=== PATIENT | female | born 1955 | race African-American/Black ===

== ENCOUNTER 2016-10-13 17:44 | Emergency (ER) | payer MEDICARE, MEDICAID ==
[~2016-10-13] VITALS: Ht 165.1 cm; Wt 99.8 kg
[~2016-10-13 17:44] MED LIST: ASPI-306 PO; ATOR40TA52 PO; GLIM4TAB42 PO; INSUINJ49 SC; LISI2.5T47 PO; SERT-274 PO; SITA100T7 PO
[2016-10-13 18:53] LABS: Basophils # (auto) 0 uL; Basophils % (auto) 0.4 % (0.0-2.0); Eosinophils # (auto) 0.3 uL; Eosinophils % (auto) 3.7 % (0.0-7.0); Hematocrit 32.2 % (36.0-46.0); Hemoglobin 10.7 g/dL (12.2-16.2); Lymphocytes % (auto) 22.6 % (10.0-50.0); Mean Corpuscular Hgb Conc. 33.2 g/dL (32.0-36.0); Mean Corpuscular Volume 84.3 fL (80.0-100.0); Mean Platelet Volume 7.4 fL (7.4-10.4); Monocytes # (auto) 0.5 uL; Monocytes % (auto) 6.1 % (0.0-12.0); Neutrophils % (auto) 67.2 % (37.0-80.0); Platelet Count (auto) 335 10^3/uL (140-450); Red Cell Distribution Width 14.8 % (11.6-16.0); White Blood Cell 8.9 10^3/uL (4.4-10.8)
[2016-10-13 19:19] LABS: Albumin 3.5 g/dL (3.4-5.0); Alkaline Phosphatase 138 U/L (45-117); Anion Gap 6 (5-15); Aspartate Aminotransferase 16 U/L (15-37); BUN/Creatinine Ratio 13.3; Bilirubin, Total 0.3 mg/dL (0.2-1.0); Blood Urea Nitrogen 24 mg/dL (7-18); Calcium 8.7 mg/dL (8.5-10.1); Carbon Dioxide 24 mmol/L (21-32); Chloride 110 mmol/L (98-107); GFR African American 37 mL/min; GFR Non-African American 30 mL/min; Glucose 162 mg/dL (74-106); Magnesium 2.3 mg/dL (1.6-2.6); Potassium 4.7 mmol/L (3.5-5.1); Sodium 140 mmol/L (136-145); Total Protein 7.8 g/dL (6.4-8.2)
[2016-10-14 03:35] VITALS: BP 119/62
== END 2016-10-14 03:35 | disposition home or self-care (01) ==
LOC: ER 17:47
DX: R55 Syncope and collapse (principal); E11.9 Type 2 diabetes mellitus without complications; R51 Headache; R07.9 Chest pain, unspecified; E86.0 Dehydration; Z88.1 Allergy status to other antibiotic agents; Z88.8 Allergy status to other drugs, medicaments and biological substances; Z79.899 Other long term (current) drug therapy; Z79.4 Long term (current) use of insulin
CPT/HCPCS: 36415; 70450; 71010; 80053; 82962; 83735; 84484; 85025; 93005; 99285; J7030

== ENCOUNTER 2016-12-10 22:42 | Emergency (ER) | payer MEDICARE, OTHER ==
[~2016-12-10] VITALS: Ht 165.1 cm; Wt 99.8 kg
[2016-12-10 23:00] VITALS: BP 127/53
[2016-12-11] MEDS ORDERED: LEVOFLOXACIN 500MG 100 ML IV ONE (02:00)
[2016-12-11] MEDS ORDERED: LEVOFLOXACIN 500 MG TAB PO ONE (02:15)
== END 2016-12-11 02:22 | disposition home or self-care (01) ==
LOC: ER 22:42
DX: J18.9 Pneumonia, unspecified organism (principal); E11.9 Type 2 diabetes mellitus without complications
CPT/HCPCS: 71010

== ENCOUNTER 2020-08-26 20:34 | Inpatient (IN) | payer MEDICARE, OTHER ==
[~2020-08-26] VITALS: Ht 162.6 cm; Wt 105.0 kg
[2020-08-26 22:24] LABS: Basophils # (auto) 0 10 ^3/uL (0-0.2); Basophils % (auto) 0.2 % (0.0-2.0); Eosinophils # (auto) 0 10 ^3/uL (0-0.8); Hematocrit 31.9 % (36.0-46.0); Hemoglobin 10.2 g/dL (12.2-16.2); Lymphocytes # (auto) 0.8 10 ^3/uL (0.4-5.4); Lymphocytes % (auto) 7.1 % (10.0-50.0); Mean Corpuscular Hemoglobin 27.9 pg (28.0-32.0); Mean Corpuscular Volume 87.2 fL (80.0-100.0); Monocytes # (auto) 0.3 10 ^3/uL (0-1.3); Monocytes % (auto) 2.8 % (0.0-12.0); Neutrophils # (auto) 10.7 10 ^3/uL (1.6-8.6); Neutrophils % (auto) 89.9 % (37.0-80.0); Platelet Count (auto) 351 10^3/uL (140-450); Red Blood Cells 3.67 10^6/uL (4.0-5.20); Red Cell Distribution Width 14.9 % (11.8-14.3); White Blood Cell 11.9 10^3/uL (4.4-10.8)
[2020-08-26 22:40] LABS: Albumin 3.3 g/dL (3.4-5.0); Calcium 8.6 mg/dL (8.5-10.1); Potassium 4.5 mmol/L (3.5-5.1)
[2020-08-26 22:45] LABS: BUN/Creatinine Ratio 12.6; Bilirubin, Total 0.4 mg/dL (0.2-1.0); Total Protein 7.4 g/dL (6.4-8.2)
[2020-08-26 22:52] LABS: INR 1.13 (0.9-1.15); Partial Thromboplastin Time 22.4 sec (23.0-31.2)
[2020-08-26] MEDS ORDERED: SODIUM CHLORIDE 0.9% 1,000 ML IV ONE (23:00)
[2020-08-26] MEDS ORDERED: InsuLIN REG 1unit/0.01ml Soln (100units/ml) IV ONE (23:00)
[2020-08-27] MEDS ORDERED: ENOXAPARIN SOD 100 MG/1 ML SYRINGE SC ONE (00:15)
[2020-08-27] MEDS ORDERED: InsuLIN REG 1unit/0.01ml Soln (100units/ml) IV ONE (02:00)
[2020-08-27] MEDS ORDERED: ONDANSETRON HCL 4 MG/2 ML VIAL IV PRN (07:00)
[2020-08-27] MEDS ORDERED: DEXTROSE (50%) 50ML SYRG IV PRN (07:00)
[2020-08-27] MEDS ORDERED: ACETAMINOPHEN 325 MG TAB PO PRN (07:00)
[2020-08-27] MEDS ORDERED: MORPHINE SULF INJ 2 MG/ML SYRINGE 1ML IV PRN (07:00)
[2020-08-27] MEDS ORDERED: DOCUSATE SOD 100 MG CAP PO PRN (07:00)
[2020-08-27] MEDS ORDERED: MORPHINE SULFATE 4 MG/ML SYR/VIAL IV PRN (07:00)
[2020-08-27] MEDS ORDERED: NITROGLYCERIN 0.4 MG SL TAB SL PRN (07:00)
[2020-08-27] MEDS ORDERED: hydrALAZINE HCL 20 MG/ML VL IV PRN (07:15)
[2020-08-27] MEDS: INSULIN LANTUS (GLARGINE) 1 /0.01ml (100units/ml) SC SCH ×2 (07:37→21:37)
[2020-08-27] MEDS: HYDROcodone-ACET 5/325MG TAB PO PRN ×2 (08:30→19:47)
[2020-08-27 08:58] LABS: Basophils # (auto) 0 10 ^3/uL (0-0.2); Basophils % (auto) 0.4 % (0.0-2.0); Eosinophils # (auto) 0 10 ^3/uL (0-0.8); Hematocrit 27.6 % (36.0-46.0); Lymphocytes # (auto) 1.7 10 ^3/uL (0.4-5.4); Lymphocytes % (auto) 17.4 % (10.0-50.0); Mean Corpuscular Hemoglobin 28.1 pg (28.0-32.0); Mean Corpuscular Hgb Conc. 32.7 g/dL (32.0-36.0); Mean Corpuscular Volume 85.7 fL (80.0-100.0); Monocytes # (auto) 0.9 10 ^3/uL (0-1.3); Neutrophils # (auto) 7.2 10 ^3/uL (1.6-8.6); Neutrophils % (auto) 73.2 % (37.0-80.0); Nucleated Red Blood Cells % 0.1 %; Platelet Count (auto) 333 10^3/uL (140-450); Red Blood Cells 3.22 10^6/uL (4.0-5.20); Red Cell Distribution Width 14.9 % (11.8-14.3); White Blood Cell 9.8 10^3/uL (4.4-10.8)
[2020-08-27] MEDS: ASPirin-EC 81 mg tab PO SCH (09:11)
[2020-08-27] MEDS: MULTIPLE VITAMIN TAB PO SCH (09:11)
[2020-08-27] MEDS: SERTRALINE HCL 50 MG TAB PO SCH (09:12)
[2020-08-27] MEDS: ZINC SULFATE 220mg CAP or TAB PO SCH (09:12)
[2020-08-27] MEDS: HEPARIN SODIUM (PORCINE) 5000 UNITS/ML 1ML VIAL SC SCH ×2 (09:15→21:36)
[2020-08-27 09:38] LABS: Calcium 8.7 mg/dL (8.5-10.1); Potassium 3.8 mmol/L (3.5-5.1)
[2020-08-27 09:41] LABS: BUN/Creatinine Ratio 12.7; Bilirubin, Total 0.4 mg/dL (0.2-1.0); Total Protein 6.5 g/dL (6.4-8.2)
[2020-08-27] MEDS ORDERED: PATIENTS OWN MEDICATION (Atorvastatin Calcium 40 MG) PO SCH (10:00)
[2020-08-27] MEDS ORDERED: FAMOTIDINE 20 MG TAB PO SCH (10:00)
[2020-08-27 10:08] LABS: Cholesterol 94 mg/dL (< 200); HDL Cholesterol 39 mg/dL (40-59); LDL Cholesterol 45 mg/dL (< 100); Triglycerides 115 mg/dL (< 150)
[2020-08-27] MEDS: ASCORBIC ACID 500 MG TAB PO SCH ×2 (11:44→21:35)
[2020-08-27 12:00] VITALS: BP 147/66
[2020-08-27] MEDS: ACCU-CHEK COMFORT CURVE STRIP VI SCH ×3 (12:00→23:31)
[2020-08-27] MEDS: InsuLIN REG 1unit/0.01ml Soln (100units/ml) SC SCH ×3 (12:25→23:33)
[2020-08-27] MEDS: SODIUM CHLOR 0.9% PF (SALINE LOCK) 10ML VIAL/SYR IV SCH ×2 (14:00→21:34)
[2020-08-27 16:00] VITALS: BP 140/63
[2020-08-27] MEDS ORDERED: FENO160T8 PO (17:54)
[2020-08-27] MEDS ORDERED: VITA-55 PO (17:54)
[2020-08-27] MEDS ORDERED: B-COTAB56 OR (17:54)
[2020-08-27] MEDS ORDERED: ROSU1TAB13 PO (17:54)
[2020-08-27] MEDS ORDERED: GARL10CA2 PO (17:54)
[2020-08-27] MEDS ORDERED: OMEG1CAP59 PO (17:54)
[2020-08-27] MEDS ORDERED: INSUINJ18 SC (17:54)
[2020-08-27] MEDS ORDERED: LATA0.0019 EACHEYE (17:54)
[2020-08-27] MEDS ORDERED: FURO40TA4 PO (17:54)
[2020-08-27] MEDS ORDERED: CHOL20004 PO (17:54)
[2020-08-27] MEDS ORDERED: HYDR-4298 PO (17:54)
[2020-08-27] MEDS ORDERED: ASCO500T11 PO (17:54)
[2020-08-27] MEDS ORDERED: FLUT1SPR5 (17:54)
[2020-08-27] MEDS ORDERED: DULA0.5I SC (17:54)
[2020-08-27] MEDS ORDERED: INSU1.2I SC (17:54)
[2020-08-27] MEDS ORDERED: CYA100I PO (17:54)
[2020-08-27] MEDS ORDERED: ALP15OS EACHEYE (17:54)
[2020-08-27] MEDS ORDERED: SODI325T PO (17:54)
[2020-08-27] MEDS: BUMETANIDE 2.5mg/10ml (0.25 mg/ml) INJ IV SCH (18:17)
[2020-08-27 20:00] VITALS: BP 141/44
[2020-08-27 22:00] VITALS: BP 141/44
[2020-08-27] MEDS ORDERED: ATORVASTATIN 20 MG TAB PO SCH (22:00)
[2020-08-28 05:00] VITALS: BP 154/65
[2020-08-28] MEDS: ACCU-CHEK COMFORT CURVE STRIP VI SCH ×2 (05:27→12:41)
[2020-08-28] MEDS: BUMETANIDE 2.5mg/10ml (0.25 mg/ml) INJ IV SCH (05:27)
[2020-08-28] MEDS: SODIUM CHLOR 0.9% PF (SALINE LOCK) 10ML VIAL/SYR IV SCH ×2 (05:27→13:32)
[2020-08-28] MEDS: InsuLIN REG 1unit/0.01ml Soln (100units/ml) SC SCH ×2 (05:28→12:42)
[2020-08-28] MEDS: INSULIN LANTUS (GLARGINE) 1 /0.01ml (100units/ml) SC SCH (06:04)
[2020-08-28] MEDS ORDERED: SODIUM CHL 0.9% 1000 ML BAG XX ONE (07:00)
[2020-08-28 07:11] LABS: Basophils # (auto) 0 10 ^3/uL (0-0.2); Basophils % (auto) 0.4 % (0.0-2.0); Eosinophils # (auto) 0.1 10 ^3/uL (0-0.8); Eosinophils % (auto) 1.1 % (0.0-7.0); Hematocrit 27.6 % (36.0-46.0); Lymphocytes # (auto) 1.3 10 ^3/uL (0.4-5.4); Lymphocytes % (auto) 12.8 % (10.0-50.0); Mean Corpuscular Hemoglobin 28.2 pg (28.0-32.0); Mean Corpuscular Hgb Conc. 32.7 g/dL (32.0-36.0); Mean Corpuscular Volume 86.2 fL (80.0-100.0); Monocytes # (auto) 0.6 10 ^3/uL (0-1.3); Monocytes % (auto) 6.5 % (0.0-12.0); Neutrophils # (auto) 7.8 10 ^3/uL (1.6-8.6); Neutrophils % (auto) 79.2 % (37.0-80.0); Nucleated Red Blood Cells % 0.1 %; Platelet Count (auto) 299 10^3/uL (140-450); Red Cell Distribution Width 14.7 % (11.8-14.3); White Blood Cell 9.8 10^3/uL (4.4-10.8)
[2020-08-28 07:16] LABS: Urine Bacteria MANY /hpf (None Seen); Urine Blood TRACE /uL (Negative); Urine Hyaline Cast FEW /lpf (0 - 2); Urine Mucus FEW (None Seen); Urine Specific Gravity 1.009 (1.001-1.035); Urine WBC 31 /hpf (0 - 5)
[2020-08-28 08:00] VITALS: BP 141/61
[2020-08-28 08:10] LABS: % Iron Saturation 3.6 % (15-50)
[2020-08-28] MEDS: ASPirin-EC 81 mg tab PO SCH (09:26)
[2020-08-28] MEDS: MULTIPLE VITAMIN TAB PO SCH (09:26)
[2020-08-28] MEDS: ZINC SULFATE 220mg CAP or TAB PO SCH (09:26)
[2020-08-28] MEDS: SERTRALINE HCL 50 MG TAB PO SCH (09:28)
[2020-08-28] MEDS: ASCORBIC ACID 500 MG TAB PO SCH (09:28)
[2020-08-28] MEDS: HEPARIN SODIUM (PORCINE) 5000 UNITS/ML 1ML VIAL SC SCH (09:29)
[2020-08-28] MEDS ORDERED: FAMOTIDINE 20 MG TAB PO SCH (10:00)
[2020-08-28] MEDS: HYDROcodone-ACET 5/325MG TAB PO PRN (12:57)
[2020-08-28 13:00] VITALS: BP 163/68
[2020-08-28 13:37] VITALS: BP 163/68
[2020-08-28 15:14] LABS: Hematocrit 31.2 % (36.0-46.0); Hemoglobin 9.9 g/dL (12.2-16.2)
[2020-08-28 15:33] LABS: Albumin 2.9 g/dL (3.4-5.0); Calcium 8.6 mg/dL (8.5-10.1); Potassium 4.1 mmol/L (3.5-5.1)
[2020-08-28 15:36] LABS: Bilirubin, Total 0.5 mg/dL (0.2-1.0); Total Protein 6.8 g/dL (6.4-8.2)
[2020-08-28] MEDS ORDERED: EPOETIN ALFA-EPBX 4,000 UNIT/ML VIAL SC ONE (21:00)
== END 2020-08-28 14:07 | disposition home or self-care (01) | DRG 917 ==
LOC: ER 20:34 → EDBD 20:34 → TELE 08-27 06:53 → TELE-CENTR 08-27 10:28
PROVIDERS: ADMIT Nurse Practitioner Family; ATTEND Nurse Practitioner Family
PROC: 5A1D70Z Performance of Urinary Filtration, Intermittent, Less than 6 Hours Per Day (ICD-10-PCS; principal; 2020-08-28)
DX: T88.59XA Other complications of anesthesia, initial encounter (principal); I21.4 Non-ST elevation (NSTEMI) myocardial infarction; N18.6 End stage renal disease; G93.40 Encephalopathy, unspecified; L03.113 Cellulitis of right upper limb; N25.81 Secondary hyperparathyroidism of renal origin; E46 Unspecified protein-calorie malnutrition; I12.0 Hypertensive chronic kidney disease with stage 5 chronic kidney disease or end stage renal disease; T82.868A Thrombosis due to vascular prosthetic devices, implants and grafts, initial encounter; D72.829 Elevated white blood cell count, unspecified; E11.22 Type 2 diabetes mellitus with diabetic chronic kidney disease; E11.65 Type 2 diabetes mellitus with hyperglycemia; Z20.822 Contact with and (suspected) exposure to COVID-19; E78.5 Hyperlipidemia, unspecified; Z96.611 Presence of right artificial shoulder joint; F41.9 Anxiety disorder, unspecified; F32.9 Major depressive disorder, single episode, unspecified; H91.20 Sudden idiopathic hearing loss, unspecified ear; D63.1 Anemia in chronic kidney disease; M89.9 Disorder of bone, unspecified; E66.9 Obesity, unspecified; M25.511 Pain in right shoulder; H54.8 Legal blindness, as defined in USA; H91.93 Unspecified hearing loss, bilateral; Y83.8 Other surgical procedures as the cause of abnormal reaction of the patient, or of later complication, without mention of misadventure at the time of the procedure; Y92.89 Other specified places as the place of occurrence of the external cause; Z80.0 Family history of malignant neoplasm of digestive organs; Z80.8 Family history of malignant neoplasm of other organs or systems; Z82.5 Family history of asthma and other chronic lower respiratory diseases; Z83.3 Family history of diabetes mellitus; Z99.2 Dependence on renal dialysis; Z88.1 Allergy status to other antibiotic agents; Z68.39 Body mass index [BMI] 39.0-39.9, adult; Z88.8 Allergy status to other drugs, medicaments and biological substances
CPT/HCPCS: 36415; 36600; 70450; 71045; 80053; 80061; 81001; 82728; 82805; 82962; 83036; 83540; 83550; 83605; 83880; 84484; 85014; 85018; 85025; 85379; 85610; 85730; 87040; 87081; 87086; 87426; 90935; 93005; 96361; 96372; 96374; 96375; G0378; J1815

== ENCOUNTER → 2022-09-26 | Outpatient (CLI) | payer OTHER ==
[~2022-09-26] MED LIST changes: +ALP15OS EACHEYE; +ASCO500T11 PO; -ATOR40TA52 PO; +B-COTAB56 OR; +CHOL20004 PO; +CYA100I PO; +DULA0.5I SC; +FENO160T8 PO; +FLUT1SPR5; +FURO40TA4 PO; +GARL10CA2 PO; -GLIM4TAB42 PO; +HYDR-4298 PO; +INSU1.2I SC; +INSUINJ18 SC; -INSUINJ49 SC; +LATA0.0019 EACHEYE; -LISI2.5T47 PO; +OMEG1CAP59 PO; +ROSU1TAB13 PO; -SERT-274 PO; +SERT50TA19 PO; -SITA100T7 PO; +SODI325T PO; +VITA-55 PO
[2022-09-26 13:42] LABS: Basophils # (auto) 0.1 10 ^3/uL (0-0.2); Basophils % (auto) 1.3 % (0.0-2.0); Eosinophils # (auto) 0.2 10 ^3/uL (0-0.8); Eosinophils % (auto) 2.8 % (0.0-7.0); Hematocrit 36.2 % (36.0-46.0); Hemoglobin 11.9 g/dL (12.2-16.2); Lymphocytes % (auto) 31.3 % (10.0-50.0); Mean Corpuscular Hemoglobin 28.2 pg (28.0-32.0); Mean Corpuscular Volume 85.5 fL (80.0-100.0); Monocytes # (auto) 0.4 10 ^3/uL (0-1.3); Monocytes % (auto) 6.1 % (0.0-12.0); Neutrophils # (auto) 3.8 10 ^3/uL (1.6-8.6); Neutrophils % (auto) 58.5 % (37.0-80.0); Nucleated Red Blood Cells % 0.1 %; Red Blood Cells 4.23 10^6/uL (4.0-5.20); Red Cell Distribution Width 13.2 % (11.8-14.3); White Blood Cell 6.5 10^3/uL (4.4-10.8)
[2022-09-26 14:25] LABS: Folate (Folic Acid) 12.21 ng/mL (5.38-24)
[2022-09-26 14:35] LABS: Albumin 2.2 g/dL (3.4-5.0); Bilirubin, Total 0.4 mg/dL (0.2-1.0); Calcium 7.9 mg/dL (8.5-10.1); Total Protein 6.4 g/dL (6.4-8.2); Uric Acid 2.7 mg/dL (2.6-6.0)
[2022-09-27 10:33] LABS: Urine Bacteria NONE SEEN /hpf (None Seen); Urine Blood TRACE /uL (Negative); Urine Specific Gravity 1.018 (1.001-1.035); Urine WBC 107 /hpf (0 - 5)
== END | disposition home or self-care (01) ==
LOC: LAB 13:20
PROVIDERS: ATTEND Internal Medicine
DX: R73.09 Other abnormal glucose (principal); E78.41 Elevated Lipoprotein(a); R68.89 Other general symptoms and signs; E61.2 Magnesium deficiency; R94.6 Abnormal results of thyroid function studies; R82.991 Hypocitraturia; E55.9 Vitamin D deficiency, unspecified; R82.79 Other abnormal findings on microbiological examination of urine; D51.9 Vitamin B12 deficiency anemia, unspecified; R82.90 Unspecified abnormal findings in urine; E79.0 Hyperuricemia without signs of inflammatory arthritis and tophaceous disease
CPT/HCPCS: 36415; 80053; 80061; 81001; 82306; 82607; 82746; 83036; 84443; 84550; 85025; 87086; 87088

== ENCOUNTER 2024-08-10 12:43 | Emergency (ER) | payer MEDICARE, OTHER ==
[~2024-08-10] VITALS: Ht 162.6 cm; Wt 80.0 kg
[~2024-08-10 12:43] MED LIST changes: +FENO160T PO; -FENO160T8 PO; -HYDR-4298 PO; +HYDR100T10 PO; -LATA0.0019 EACHEYE; +LATA0.008 EACHEYE; +ROSU10TA64 PO; -ROSU1TAB13 PO; +SERT-206 PO; -SERT50TA19 PO
--- NOTE | 2024-08-10 12:54 | ED.PDOC ---
History of Present Illness HPI Comments 69 year old female presents to the ED with a chief complaint of dizziness onset today. Per EMS, patient went to dialysis today, goes Saturday, Saturday, Saturday, has a PMHx HTN, HLD, DM, ESRD, anxiety and is not complaint with medication. Patient states she got home after dialysis and began experiencing dizziness, called 911. Patient had positive ortho stats. Denies chest pain, shortness of breath, nausea, vomiting, diarrhea, fever, chills. No other symptoms or other modifying factors present at this time. Chief Complaint: Dizziness Time Seen by MD: 12:42 Primary Care Provider: ABE Reviewed Notes: Medications, Allergies Allergies: Coded Allergies: Acetaminophen (Verified Allergy, Severe, 08/10/24) Cephalexin (Verified Allergy, Intermediate, RASH, 08/26/20) Uncoded Allergies: ADHESIVE (Allergy, Severe, 05/10/15) ANAPHYLAXIS, WHEEZING, BLISTERING, FACIAL SWELLING, NECK SWELLING ADHESIVE TAPE (Allergy, Intermediate, RASH, 09/27/15) Home Meds Reported Medications Vitamin B12 (Vitamin B-12) 1,000 Mcg/1 Ml Ij, 500 MCG PO DAILY, INJ 08/27/20 Vitamin E (Vitamin E) 400 Unit Cap, 450 UNIT PO DAILY, CAP 08/27/20 Ascorbic Acid (VITAMIN C TABLET) 500 Mg Tb, 2 TAB PO DAILY, #30 TAB 3 Refills 08/27/20 B-Complex W/ Folic Acid (Super B Complex Maxi) Maxi Tab, 1 TAB OR DAILY, TAB 08/27/20 Garlic (GARLIC) 10 Mg Cap, 1000 MG PO DAILY, CAP 08/27/20 Brimonidine Tartrate (ALPHAGAN P 0.15% OPTHALMIC) [address], 1 DROP EACHEYE BID, #5 ML 2 Refills 08/27/20 Latanoprost (LATANOPROST) 0.005 % Vickie, 1 DROP EACHEYE QPM, #7.5 ML 3 Refills 08/27/20 Fenofibrate (Fenofibrate) 160 Mg Tab, 1 TAB PO HS, #30 TAB 5 Refills 08/27/20 Lupton-3 Fatty Acids (Lupton 3 500 500 mg) 1 Cap Cap, 2 CAP PO BID, CAP 08/27/20 Cholecalciferol (D3) 50 Mcg Cap, 50 MCG PO BID, CAP 08/27/20 Fluticasone Propionate (Nasal) (Flonase Allergy Relief) 50 Mcg/Act Spr, 50 MCG NA DAILY, SPRAY 08/27/20 Furosemide (Furosemide) 40 Mg Tab, 1 TAB PO EOD, #30 TAB 5 Refills 08/27/20 Dulaglutide (Trulicity) 1.5 Mg/0.5 Ml Inj, 1.5 MG SC QWEEKLY, INJ 08/27/20 Hydralazine Hcl (Hydralazine Hcl) 100 Mg Tab, 1 TAB PO BID, #90 TAB 5 Refills 08/27/20 Sodium Bicarbonate (Sodium Bicarbonate) 325 Mg Tab, 10 GM PO BID, TAB 08/27/20 Insulin Glargine (Toujeo Solostar) 300 Unit/Ml Inj, 30 UNIT SC HS, INJ 08/27/20 Insulin Aspart Protamine & Asp (Novolog Mix 70/30 Prefill (70-30) 100 Unit/ml) 1 Inj Inj, 15 UNIT SC AC, INJ 08/27/20 Rosuvastatin Calcium (Rosuvastatin Calcium) 10 Mg Tab, 10 MG PO HS, TAB 08/27/20 Aspirin (Tyra Aspirin Ec Low Dose) 81 Mg Tab, 81 MG PO DAILY, TAB 05/04/15 Sertraline Hcl (Sertraline Hcl) 50 Mg Tab, 25 MG PO DAILY for 30 Days, MG 05/03/15 Information Source: Patient, Emergency Med Personnel Mode of Arrival: EMS Severity: Moderate Timing: Hours Duration: Since onset Prehospital treatment: 12 Lead EKG Past Medical History PAST MEDICAL HISTORY: Anxiety, Depression, DM, ESRD, High Lipids, HTN Surgical History: , Tonsillectomy ARCHEOLOGY PROFESSOR History: No Pertinent ARCHEOLOGY PROFESSOR History Family History Family History: Unobtainable Social History Smoker: Non-Smoker Alcohol: Denies ETOH Use Drugs: Denies Drug Use Lives In: Home Constitutional: denies: chills, diaphoresis, fatigue, fever, malaise, sweats, weakness, others EENTM: denies: blurred vision, double vision, ear bleeding, ear discharge, ear drainage, ear pain, ear ringing, eye pain, eye redness, hearing loss, mouth pain, mouth swelling, nasal discharge, nose bleeding, nose congestion, nose pain, photophobia, tearing, throat pain, throat swelling, voice changes, others Respiratory: denies: cough, hemoptysis, orthopnea, SOB at rest, shortness of breath, SOB with excertion, stridor, wheezing, others Cardiovascular: denies: chest pain, dizzy spells, diaphoresis, Dyspnea on exertion, edema, irregular heart beat, left arm pain, lightheadedness, palpitations, PND, syncope, others Gastrointestinal: denies: abdomen distended, abdominal pain, blood streaked bowels, constipated, diarrhea, dysphagia, difficulty swallowing, hematemesis, melena, nausea, poor appetite, poor fluid intake, rectal bleeding, rectal pain, vomiting, others Genitourinary: denies: abnormal vagina bleeding, burning, dyspareunia, dysuria, flank pain, frequency, hematuria, incontinence, pain, , vagina discharge, urgency, others Neurological: reports: dizziness; denies: fainting, headache, left sided numbness, left sided weakness, numbness, paresthesia, pre-existing deficit, right sided numbness, right sided weakness, seizure, speech problems, tingling, tremors, weakness, others Musculoskeletal: denies: back pain, gout, joint pain, joint swelling, muscle pain, muscle stiffness, neck pain, others Integumetry: denies: bruises, change in color, change in hair/nails, dryness, laceration, lesions, lumps, rash, wounds, others Allergic/Immunocompromised: denies: Difficulty Healing, Frequent Infections, Hives, Itching, others Hematologic/Lymphatic: denies: anemia, blood clots, easy bleeding, easy bruising, swollen glands, others Endocrine: denies: excessive hunger, excessive sweating, excessive thirst, excessive urination, flushing, intolerance to cold, intolerance to heat, unexplained weight gain, unexplained weight loss, others Psychiatric: denies: anxiety, bipolar disorder, depression, hopeless, panic disorder, schizophrenia, sleepless, suicidal, others All Other Systems: Reviewed and Negative Physical Exam General Appearance: Moderate Distress, Normal HEENT: Normal ENT Inspection, Pharynx Normal, TMs Normal Neck: Full Range of Motion, Non-Tender, Normal, Normal Inspection Respiratory: Chest Non-Tender, Lungs Clear, No Accessory Muscle Use, No Respiratory Distress, Normal Breath Sounds Cardiovascular: No Edema, No JVD, No Murmur, No Gallop, Normal Peripheral Pulses, Regular Rate/Rhythm Breast Exam: Deferred Gastrointestinal: No Organomegaly, Non Tender, No Pulsatile Mass, Normal Bowel Sounds, Soft Genitalia: Deferred Pelvic: Deferred Rectal: Deferred Extremities: No calf tenderness, Normal capillary refill, Normal inspection, No rmal range of motion, Non-tender, No pedal edema Musculoskeletal : Apperance: Normal Neurologic: Alert, numerical control operator II-XII nml as Tested, No Motor Deficits, Normal Affect, Normal Mood, No Sensory Deficits Cerebellar Function: NOT DONE Reflexes: NOT DONE Skin: Dry, Normal Color, Warm Peripheral Pulses: 3+ Radial (R), 3+ Radial (L) Lymphatic: No Adenopathy Was a procedure done? Was a procedure done?: No Differential Dx Considerations may include: Anemia Electrolyte imbalance X-Ray, Labs, Meds, VS Vital Signs Date Time Temp Pulse Resp B/P (MAP) Pulse Ox O2 Delivery O2 Flow Rate FiO2 08/10/24 14:00 73 18 185/75 (111) 92 08/10/24 13:32 75 08/10/24 13:20 73 18 97 Room Air* 0 21 08/10/24 13:20 97.8 73 16 179/81 (113) 94 97.8 08/10/24 12:51 98.4 117 18 143/76 (98) 94 98.4 08/10/24 12:45 75 Lab Test 08/10/24 13:23 Range/Units White Blood Count 5.1 4.4-10.8 10^3/uL Red Blood Count 4.03 4.0-5.20 10^6/uL Hemoglobin 11.5 L 12.2-16.2 g/dL Hematocrit 34.6 L 36.0-46.0 % Mean Corpuscular Volume 85.9 80.0-100.0 fL Mean Corpuscular Hemoglobin 28.6 28.0-32.0 pg Mean Corpuscular Hemoglobin Concent 33.2 32.0-36.0 g/dL Red Cell Distribution Width 16.0 H 11.8-14.3 % Platelet Count 188 140-450 10^3/uL Mean Platelet Volume 7.5 6.9-10.8 fL Neutrophils (%) (Auto) 66.2 37.0-80.0 % Lymphocytes (%) (Auto) 23.0 10.0-50.0 % Monocytes (%) (Auto) 7.6 0.0-12.0 % Eosinophils (%) (Auto) 2.5 0.0-7.0 % Basophils (%) (Auto) 0.7 0.0-2.0 % Neutrophils # (Auto) 3.4 1.6-8.6 10 ^3/uL Lymphocytes # (Auto) 1.2 0.4-5.4 10 ^3/uL Monocytes # (Auto) 0.4 0-1.3 10 ^3/uL Eosinophils # (Auto) 0.1 0-0.8 10 ^3/uL Basophils # (Auto) 0 0-0.2 10 ^3/uL Nucleated Red Blood Cells 0.3 % Sodium Level 134 L 136-145 mmol/L Potassium Level 3.9 3.5-5.1 mmol/L Chloride Level 97 L 98-107 mmol/L Carbon Dioxide Level 29 20-31 mmol/L Anion Gap 8 5-15 Blood Urea Nitrogen 31 H 9-23 mg/dL Creatinine 3.49 H 0.550-1.02 mg/dL Glomerular Filtration Rate Calc 14 >90 mL/min BUN/Creatinine Ratio 8.9 L 10.0-20.0 Serum Glucose 286 H 74-106 mg/dL Calcium Level 9.0 8.7-10.4 mg/dL Troponin I High Sensitivity 17 </=34 ng/L Patient alert pain States that she is feeling much better. Heart rate on examination was within normal limits. Regular. Recently had dialysis. Chronic history. No fall. Denies dizziness. Denies headache. Moving all extremities. Has good strength in all extremities. Explained to the patient. Was told to follow up her primary care physician. Was told to come back there is any problem. [place] [address] Ph: [phone] DIAGNOSTIC IMAGING Diagnostic Imaging Report : [id number] Signed PATIENT: BELINDA MILNER AACCT: [id number] UNIT: [id number] : 1955 LOC: ER ROOM / BED: / AGE / SEX: 69 / F ADM STATUS: REG ER SERVICE 1251 ORDERING PHYSICIAN: ANIRUDH CHENG MD PROCEDURE(s): CXRP - CHEST PORTABLE REASON: sob ORDER NUMBER(s): [id number], ACCESSION NUMBER(s): [id number] XY CHEST PORTABLE, HISTORY: sob COMPARISON: CHEST PORTABLE on DOS: 08/26/20 CHEST PORTABLE on DOS: 08/26/20 TECHNICAL DATA: 1 view of the chest was obtained. FINDINGS: Lines and tubes: None Cardiomediastinal silhouette: Enlarged Pulmonary vasculature: normal Lung expansion: normal Lung airspace: normal Lung interstitium: normal Pleura: normal Pneumothorax: no Bones: Unremarkable Other: no IMPRESSION: No acute intrathoracic abnormality. Cardiomegaly. ATED BY: RONEN MUSA MD DICTATED DATE/TIME: 08/10/24 1309 SIGNED BY: RONEN MUSA MD SIGNED DATE/TIME: 08/10/24 1309 CC: Patient alert. Came in because of feeling lightheaded after dialysis. She feels better after coming to the ER. Vitals stable. Answering all questions. Good muscle strength. No sign of CVA. No leg swelling. No shortness a breath. Insists on going home. CT of the head was not done because physical examination was pristine. EKG reviewed does not show any acute changes. Chronic kidney function. WBC within normal limits. Blood sugar elevated. Was given insulin. Reviewed her history. Explained to the patient. Was told to follow up with her primary care physician. Was told to come back if there is any problem. Time of 1ST Reevaluation: 13:12 Reevaluation 1ST: Improved Patient Education/Counseling: Diagnosis, Treatment, Prognosis Family Education/Counseling: No Family Present Additional Information The following tests were ordered, and results were reviewed by me: TROP, CBC, XY CHEST, UA, BMP, EKG Additional Information was gathered from interviewing the following independent historians: EMS I reviewed and agreed with the following test results read by other providers: XY CHEST I discussed treatment and results with medical personnel and: patient Comprehensive systems review obtained and negative except for what is stated in the HPI. Departure 1 Departure Time of Disposition: 13:28 Impression: Primary Impression: Diabetes mellitus due to underlying condition, uncontrolled, with hyperglycemia Additional Impression: Anemia in CKD (chronic kidney disease) Qualified Codes: N18.9 - Chronic kidney disease, unspecified; D63.1 - Anemia in chronic kidney disease Disposition: HOME / SELF CARE / HOMELESS Condition: Good Discharged With: Self Critical Care Note Critical Care Time?: No Stability Stability form required: No Heart Score Heart Score: Heart Score Response (Comments) Value History Slightly Suspicious 0 EKG Normal 0 Age >65 2 Risk Factors >3 or Hx ASHD 2 Troponin Normal limit 0 Total 4 I personally scribed for ANIRUDH CHENG MD ([email or web address]) on 08/10/24 at 12:54. Electronically submitted by Iram Alvarez ([email or web address]). I personally scribed for ANIRUDH CHENG MD ([email or web address]) on 08/10/24 at 15:01. Electronically submitted by Iram Alvarez ([email or web address]). ANIRUDH CHENG MD Aug 10, 2024 12:54
--- NOTE | 2024-08-10 13:12 | DVH ---
XY CHEST PORTABLE, HISTORY: sob COMPARISON: CHEST PORTABLE on DOS: 08/26/20 CHEST PORTABLE on DOS: 08/26/20 TECHNICAL DATA: 1 view of the chest was obtained. FINDINGS: Lines and tubes: None Cardiomediastinal silhouette: Enlarged Pulmonary vasculature: normal Lung expansion: normal Lung airspace: normal Lung interstitium: normal Pleura: normal Pneumothorax: no Bones: Unremarkable Other: no IMPRESSION: No acute intrathoracic abnormality. Cardiomegaly.
[2024-08-10 13:20] VITALS: PULSE 73; RESP 18; TEMP 97.8; O2SAT 97
[2024-08-10 13:53] LABS: Basophils # (auto) 0 10 ^3/uL (0-0.2); Basophils % (auto) 0.7 % (0.0-2.0); Eosinophils # (auto) 0.1 10 ^3/uL (0-0.8); Eosinophils % (auto) 2.5 % (0.0-7.0); Hematocrit 34.6 % (36.0-46.0); Hemoglobin 11.5 g/dL (12.2-16.2); Lymphocytes # (auto) 1.2 10 ^3/uL (0.4-5.4); Mean Corpuscular Hemoglobin 28.6 pg (28.0-32.0); Mean Corpuscular Hgb Conc. 33.2 g/dL (32.0-36.0); Mean Corpuscular Volume 85.9 fL (80.0-100.0); Monocytes # (auto) 0.4 10 ^3/uL (0-1.3); Monocytes % (auto) 7.6 % (0.0-12.0); Neutrophils # (auto) 3.4 10 ^3/uL (1.6-8.6); Neutrophils % (auto) 66.2 % (37.0-80.0); Nucleated Red Blood Cells % 0.3 %; Platelet Count (auto) 188 10^3/uL (140-450); Red Blood Cells 4.03 10^6/uL (4.0-5.20); White Blood Cell 5.1 10^3/uL (4.4-10.8)
[2024-08-10 13:54] LABS: Potassium 3.9 mmol/L (3.5-5.1)
[2024-08-10 13:55] LABS: Anion Gap 8 (5-15); Carbon Dioxide 29 mmol/L (20-31)
[2024-08-10 13:57] LABS: Chloride 97 mmol/L (98-107); Sodium 134 mmol/L (136-145)
[2024-08-10 14:01] LABS: BUN/Creatinine Ratio 8.9 (10.0-20.0)
[2024-08-10 14:02] LABS: Blood Urea Nitrogen 31 mg/dL (9-23); Glucose 286 mg/dL (74-106)
[2024-08-10] MEDS ORDERED: InsuLIN REG 1unit/0.01ml Soln (100units/ml) IV ONE (16:00)
[2024-08-10 16:01] VITALS: BP 186/68; PULSE 86; RESP 18; O2SAT 97
--- NOTE | 2024-08-10 19:50 | ECG ---
[facility] Test Date: 2024-08-10 Test Time: 12:45:30 Pat Name: BELINDA UGALDE Department: ED Room: Gender: F Ophthalmic Medical Assistant: MATEUS : 1955 Requested By: ANIRUDH CHENG Order Number: [id number] Reading MD: Aram Maynard Measurements Intervals Murphy Rate: 75 P: 61 MT: 149 QRS: 62 QRSD: 114 T: 65 QT: 438 QTc: 490 Interpretive Statements Sinus rhythm Borderline intraventricular conduction delay Borderline prolonged QT interval Electronically Signed On 08-13-2024 13:22:41 PDT by Aram Maynard Please click the below link to view image of tracing.
== END 2024-08-10 16:14 | disposition home or self-care (01) ==
LOC: EDBD 12:43 → EDUNIT# 12:43 → ER 12:43
DX: E11.65 Type 2 diabetes mellitus with hyperglycemia (principal); D63.1 Anemia in chronic kidney disease; F32.A Depression, unspecified; F41.9 Anxiety disorder, unspecified; I12.0 Hypertensive chronic kidney disease with stage 5 chronic kidney disease or end stage renal disease; N18.6 End stage renal disease; Z88.1 Allergy status to other antibiotic agents; Z90.89 Acquired absence of other organs; Z79.899 Other long term (current) drug therapy; Z79.85 Long-term (current) use of injectable non-insulin antidiabetic drugs; Z79.82 Long term (current) use of aspirin
CPT/HCPCS: 36415; 71045; 80048; 82947; 84484; 85025; 93005